=== PATIENT | male | born 1960 | race Caucasian/White ===

== ENCOUNTER 2019-11-10 12:48 | Outpatient (CLI) | payer OTHER, SELFPAY ==
--- NOTE | ~2019-11-10 | US_ITS ---
EXAMINATION: US FNA w image guidance, US FNA additional, US FNA additional DATE: 11/10/2019 14:34 INDICATION: Multiple thyroid nodules TECHNIQUE: A time-out was performed to verify the patient's name, date of , and procedure to be performed . The procedure and its benefits and risks were discussed with the patient. Risks specifically discus sed included bleeding and infection. The patient understood the risks and agreed to proceed. Attentio n was first turned to the left thyroid nodules. The anterior left side of the neck was prepped and dr aped in the usual sterile manner. 5 mL 1% lidocaine was used for local anesthesia overlying the left thyroid lobe. 5 passes were made with a 25G needle into the more cephalad nodule utilizing continuo us sonographic observation and placed in the first collection vial with media. The vial and medial we re exchanged an additional 5 passes were made with a 25G needle into the more caudal nodule again uti lizing continuous sonographic observation. The vial and medial were again exchanged and the anterior right side of the neck was prepped and draped in usual sterile manner. An additional 4 mm 1% lidocain e was used for local anesthesia overlying the right thyroid lobe. 5 passes were made with a 25G needl e into the dominant nodule at the inferior right thyroid lobe utilizing continuous ultrasound observa tion and specimen in the final vial. Sterile bandages were applied. There were no immediate complica tions. FINDINGS: Grayscale ultrasound images demonstrate biopsy needles advanced into first a 3.2 cm predominantly stanley id, heterogeneously isoechoic nodule in the more cephalad left thyroid lobe and subsequently a 2.7 cm solid heterogeneous isoechoic nodule at the mid to inferior left thyroid lobe. Final ultrasound imag es demonstrate biopsy needles advanced into a 3.2 cm nodule at the mid to inferior right thyroid lobe . IMPRESSION: 1. Successful ultrasound-guided fine needle aspiration of a predominantly solid 3.2 cm nodule at the cephalad left thyroid. 2. Successful ultrasound-guided fine-needle aspiration of a solid 2.7 cm nodule in the mid inferior l eft thyroid lobe. 3. Successful ultrasound-guided fine-needle aspiration of a solid 3.2 cm nodules in the mid to inferi or right thyroid lobe. Reviewed, dictated and finalized at location A. IMPRESSION: 1. Successful ultrasound-guided fine needle aspiration of a predominantly leola d 3.2 cm nodule at the cephalad left thyroid. 2. Successful ultrasound-guided fine-needle aspiration of a solid 2.7 cm nodule in the mid inferior left thyroid lobe. 3. Successful ultrasound-guided fine-needle aspiration of a solid 3.2 cm nodule s in the mid to inferior right thyroid lobe. IMPRESSION: 1. Successful ultrasound-guided fine needle aspiration of a predominantly leola d 3.2 cm nodule at the cephalad left thyroid. 2. Successful ultrasound-guided fine-needle aspiration of a solid 2.7 cm nodule in the mid inferior left thyroid lobe. 3. Successful ultrasound-guided fine-needle aspiration of a solid 3.2 cm nodule s in the mid to inferior right thyroid lobe.
== END 2019-11-10 12:49 | disposition home or self-care (01) ==
PROVIDERS: PCP Family Medicine; Visit Provider Nurse Practitioner Family
DX: E04.1 Nontoxic single thyroid nodule (principal)
CPT/HCPCS: 10005; 10006; 88173; 88305

== ENCOUNTER → 2020-12-04 02:30 | Outpatient (CLI) | payer OTHER, SELFPAY ==
[2020-12-04 17:39] LABS: SARS-CoV-2 RNA PCR Negative
== END ==
PROVIDERS: PCP Family Medicine; Visit Provider Nurse Practitioner Family
DX: R68.89 Other general symptoms and signs (principal); Z20.822 Contact with and (suspected) exposure to COVID-19
CPT/HCPCS: C9803; U0003; U0005

== ENCOUNTER 2021-11-02 14:01 | Emergency (ER) | payer OTHER, SELFPAY ==
[2021-11-02] VITALS (10 sets, daily range): BP systolic 140–162; BP diastolic 68–94; PULSE 76–78; RESP 18–20; TEMP 36.4; O2SAT 93–99
--- NOTE | ~2021-11-02 | CT_ITS ---
EXAMINATION: CTA brain carotid DATE: 11/02/2021 15:36 CDT INDICATION: Diplopia TECHNIQUE: Computed tomographic angiography (CTA) of the head was performed with 100 mL Omnipaque-350 intravenous contrast. CTA of the neck was performed with intravenous contrast. The dose-length produ ct was 1266.94 mGy-cm. Maximum intensity projection and volume rendered 3D-reconstructions were creat ed by the technologist on a separate workstation. Automated exposure control and iterative reconstruc tion technique were employed. COMPARISON: CT head dated 11/02/2021 FINDINGS: HEAD CTA: There is normal contrast opacification of the anterior, middle and posterior cerebral arter ies without evidence for aneurysm, occlusion or significant stenosis. There are dominant vertebral ar teries. NECK CTA: There is mediastinal and right hilar lymphadenopathy. For instance right paratracheal congl omeration of lymph nodes measures 6.2 x 4.2 cm. There is an enlarged diffusely heterogeneous thyroid gland containing multiple masses, largest in the left lobe measuring up to 2.9 cm. Recommend follow-u p dedicated thyroid ultrasound. There is atherosclerosis of the distal common and proximal internal c arotid arteries without evidence for occlusion, dissection. There is mild mucosal thickening of the s inuses. There is interlobular septal thickening in the lung parenchyma peripherally suggesting chroni c interstitial lung disease. There is 18% stenosis of the proximal right internal carotid artery relative to normal distal artery lumen diameter (NASCET criteria). There is 40% stenosis of the proximal left internal carotid artery relative to normal distal artery lumen diameter. IMPRESSION: 1. 18% stenosis of the proximal right internal carotid artery relative to normal distal artery lumen diameter (NASCET criteria). 2. 40% stenosis of the proximal left internal carotid artery relative to normal distal artery lumen d iameter. 3: No significant intracranial vascular abnormality. 4: Prominent mediastinal and right hilar lymphadenopathy, suspicious for metastatic disease or lympho ma. Correlate for history of malignancy. 5: Enlarged thyroid gland containing multiple masses measuring up to 2.9 cm. Recommend correlation [facility] dedicated thyroid ultrasound on a nonemergent basis. Reviewed, dictated and finalized at location A. IMPRESSION: 1. 18% stenosis of the proximal right internal carotid artery relative to niels l distal artery lumen diameter (NASCET criteria). 2. 40% stenosis of the proximal left internal carotid artery relative to normal distal artery lumen diameter. 3: No significant intracranial vascular abnormality. 4: Prominent mediastinal and right hilar lymphadenopathy, suspicious for metast atic disease or lymphoma. Correlate for history of malignancy. 5: Enlarged thyroid gland containing multiple masses measuring up to 2.9 cm. Re commend correlation with dedicated thyroid ultrasound on a nonemergent basis.
--- NOTE | ~2021-11-02 | XR_ITS ---
XR chest 1V portable 11/02/2021 14:53 Indication: Double vision and headaches Procedure: AP portable chest Comparison: No prior studies for comparison. Findings: There is prominent right peritracheal soft tissue. Heart size normal. No focal air space di sease, pulmonary edema, pleural effusion or suspected pneumothorax. Impression: 1: Prominent right paratracheal soft tissue. Consider vascular ectasia/aneurysm versus lymphadenopath y. Reviewed, dictated and finalized at location A. Impression: 1: Prominent right paratracheal soft tissue. Consider vascular ectasia/aneurysm versus lymphadenopathy.
--- NOTE | ~2021-11-02 | CT_ITS ---
EXAMINATION: CT BRAIN W/O DATE: 11/02/2021 14:19 INDICATION: Double vision with headaches. TECHNIQUE: Computed tomography (CT) of the head was performed without intravenous contrast. The dose- length product was 605.33 mGy-cm. Automated exposure control and iterative reconstruction technique w ere employed. COMPARISON: MRI dated 12/23/2006 FINDINGS: Normal brain parenchymal volume for age. Normal love-white differentiation. No acute intrac ranial hemorrhage, infarction, mass or mass effect. The pituitary gland appears prominent and hyperdense, suspicious for pituitary mass. No ventriculomegaly or midline shift. Midline sagittal images demonstrate a normal corpus callosum, c raniovertebral junction and sella turcica. Basilar cisterns are patent. There are scattered mild ja ventricular and subcortical white matter changes, most likely related to small vessel ischemic diseas e (microangiopathy). Paranasal sinuses and mastoids are pneumatized. No depressed skull fractures. IMPRESSION: 1. No acute intracranial abnormality. 2: Possible pituitary mass. Recommend correlation with MRI of the brain with contrast using pituitar y protocol. Reviewed, dictated and finalized at location A. IMPRESSION: 1. No acute intracranial abnormality. 2: Possible pituitary mass. Recommend correlation with MRI of the brain with c ontrast using pituitary protocol.
--- NOTE | 2021-11-02 14:06 | ECG_ITS ---
Measurements Intervals [place] Rate: 73 P: 31 SC: 166 QRS: -50 QRSD: 122 T: 20 QT: 381 QTc: 420 Interpretive Statements SINUS RHYTHM LEFT ANTERIOR FASCICULAR BLOCK ABNORMAL ECG Electronically Signed On 11-02-2021 15:35:36 CDT by Osvaldo Valverde D.O.
--- NOTE | 2021-11-02 14:18 | ED.HA ---
HPI - Headache General Chief Complaint: Headache <Homar Ward MD - Last Filed: 11/02/21 22:02> Stated Complaint: headaches with double vision <Homar Ward MD - Last Filed: 11/02/21 22:02> Time Seen by Provider: 11/02/21 14:18 <Homar Ward MD - Last Filed: 11/02/21 22:02> Source: patient and family <Homar Ward MD - Last Filed: 11/02/21 22:02> Mode of arrival: ambulatory <Homar Ward MD - Last Filed: 11/02/21 22:02> Limitations: no limitations <Homar Ward MD - Last Filed: 11/02/21 22:02> History of Present Illness HPI Narrative: Patient is 61 years old white male came to the emergency room from home with his by private car complaining of headache, double vision. Patient reports some headache, sharp, steady, at the occipital area radiating to the right parietal area and behind the right eye started 2 weeks ago. 3 out of 10, patient reports the headache get worse if he bends over, nothing make it better. 6 days ago patient developed double vision and needs to close his eye every now and to refocus. Patient been driving his car every day. Sometimes close 1 eye to see better. Patient denies any fever, chills, nausea, vomiting, similar symptoms, chest pain, shortness of breath, back pain, trauma. Patient quit smoking 6 years ago, does not drink or uses drugs, history of hypertension, does not take anticoagulant or antiplatelet medication. Patient denies numbness, tingling or weakness anywhere in his body. Patient denies any gait abnormality. <Homar Ward MD - Last Filed: 11/02/21 22:02> Related Data Allergies/Adverse Reactions: Allergies Allergy/AdvReac Type Severity Reaction Status Date / Time No Known Allergies Allergy Unknown Verified 08/06/21 16:08 <Homar Ward MD - Last Filed: 11/02/21 22:02> Review of Systems Review of Systems: All systems reviewed & are unremarkable except as noted in HPI and below <Homar Ward MD - Last Filed: 11/02/21 22:02> [facility] Past Medical History Medical History: Medical History Anxiety disorder, unspecified BMI 34.0-34.9,adult BMI 36.0-36.9,adult Decreased libido Elevated hemoglobin Essential (primary) hypertension Gout, unspecified Low testosterone Neck Pain Thyroid nodule <Homar Ward MD - Last Filed: 11/02/21 22:02> Surgical History Surgical History: Surgical History S/P left rotator cuff repair <Homar Ward MD - Last Filed: 11/02/21 22:02> Family History Family History: Family History Mother Hypertension Family history of diabetes mellitus in first degree relative Other Diabetes mellitus Family history of arthritis Family history of gout Family history of heart disease in male family member before age 55 <Homar Ward MD - Last Filed: 11/02/21 22:02> Social History Social History: Social History Smoking status: Never smoker Alcohol intake: current <Homar Ward MD - Last Filed: 11/02/21 22:02> Exam Narrative: General appearance: Well-developed, well-nourished, patient wearing glasses for long time for driving Skin: Normal color Head: Normocephalic, nontraumatic Eyes: Clear conjunctiva. Right pupil is 4 mm reactive to light, left pupil is 3 mm reactive to light. ENT: Oropharynx normal, ears normal, nose normal Neck: Supple, nontender Chest and respiratory: Airway patent, no respiratory distress, no accessory muscle use Heart: Regular rate/rhythm Abdomen: Soft, nontender, no organomegaly, quiet bowel sounds Vascular: Normal peripheral pulses, normal capillary refill. Musculoskeletal: Normal range of motion, nontender back Neurologic: Alert and oriented ?3, [employer] is normal as tested, no gross motor deficit
[2021-11-02 14:50] LABS: Basophils Percent Auto 0.7 % (0.2-1.2); Eosinophils Absolute Auto 0.2 K/mm3 (0-0.3); Eosinophils Percent Auto 2.9 % (0-4.4); Hematocrit 47.1 % (42.0-52.0); Immature Granulocyte Absolute 0.03 K/mm3 (0.00-0.031); Immature Granulocyte Percent A 0.5 % (0-0.5); Lymphocytes Absolute Auto 1.75 K/mm3 (0.9-3.2); Lymphocytes Percent Auto 31.3 % (18.3-44.2); Mean Corpuscular Hemoglobin 27.6 pg (26-34); Mean Corpuscular Volume 81.3 fl (80-100); Mean Platelet Volume 9.1 fl (7.4-10.4); Monocytes Absolute Auto 0.5 K/mm3 (0.1-0.6); Monocytes Percent Auto 8.2 % (2.6-8.5); Neutrophils Absolute Auto 3.2 K/mm3 (1.3-6.7); Neutrophils Percent Auto 56.4 % (45.5-73.1); Platelet Count Result 185 k/mm3 (150-375); Red Blood Count 5.79 M/mm3 (4.6-6.20); Red Cell Distribution Width 13.2 % (11.5-14.5); White Blood Count 5.6 K/mm3 (4.5-10.0)
[2021-11-02 14:57] LABS: CRP 0.7 mg/dL (<1.0)
[2021-11-02 14:59] LABS: Partial Thromboplastin Time 25.2 SECONDS (22.3-36.8)
[2021-11-02 15:07] LABS: Alanine Aminotransferase 26 U/L (6-50); Albumin Level 4.4 g/dL (3.5-5.1); Alkaline Phosphatase 56 U/L (38-126); Anion Gap 10 mmol/L (8-16); Aspartate Amino Transferase 25 U/L (17-59); Bilirubin,Total 0.4 mg/dL (0.2-1.3); Blood Urea Nitrogen 27 mg/dL (9-20); Calcium 9.5 mg/dL (8.4-10.2); Carbon Dioxide 23 mmol/L (22-30); Chloride 106 mmol/L (98-107); Estimated CRCL calculation 90 ml/min; Estimated Glomerular Filt Rate > 60; Glucose 155 mg/dL (65-110); Potassium 3.8 mmol/L (3.4-5.0); Sodium 139 mmol/L (137-145)
[2021-11-02 15:18] LABS: Troponin I < 0.012 ng/mL (0.000-0.034)
[2021-11-02 15:38] LABS: Erythrocyte Sedimentation Rate 3 mm/hr (0-20)
--- NOTE | 2021-11-02 20:55 | PC.NURSE ---
No bed for pt at [facility] as they are at capacity. No bed until tomorrow am at earliest.
--- NOTE | 2021-11-02 23:09 | PC.NURSE ---
Assuming care of pt.
[2021-11-03] VITALS (17 sets, daily range): BP systolic 112–169; BP diastolic 67–100; PULSE 63–71; RESP 16–18; O2SAT 93–99
--- NOTE | 2021-11-03 03:29 | PC.NURSE ---
Rn spoke with slu access line there is no bed available at this time. Potential wait time for bed several days .
[2021-11-03 07:18] LABS: SARS-CoV-2 RNA PCR Negative
--- NOTE | 2021-11-03 07:19 | PC.NURSE ---
Patient report received from JENNY Edwards. All questions answered and care of patient assumed.
[2021-11-03] MEDS: LOSARTAN POTASSIUM 100 MG TABLET PO (08:28)
[2021-11-03] MEDS: hydroCHLOROthiazide 12.5 MG CAPSULE PO (08:28)
[2021-11-03] MEDS: LORazepam INJ (*CRX) 2 MG/ML VIAL 1 MG IV PUSH (09:12)
[2021-11-06 14:13] LABS: Adrenocorticotropic Hormone 24 pg/mL (6-50)
[2021-11-06 20:55] LABS: FSH 3.3 mIU/mL (1.6-8.0); Prolactin 13.4 ng/mL (***)
[2021-11-10 15:51] LABS: Z Score Male -0.6 SD (-2.0 - +2.0)
== END 2021-11-03 09:26 | disposition short-term general hospital (02) ==
PROVIDERS: Emergency Medicine; Emergency Provider Emergency Medicine; PCP Family Medicine
DX: R51.9 Headache, unspecified (principal); H53.2 Diplopia; R59.1 Generalized enlarged lymph nodes; E07.89 Other specified disorders of thyroid; E23.6 Other disorders of pituitary gland; Z20.822 Contact with and (suspected) exposure to COVID-19; I10 Essential (primary) hypertension; M10.9 Gout, unspecified; Z87.891 Personal history of nicotine dependence; I44.4 Left anterior fascicular block; I65.23 Occlusion and stenosis of bilateral carotid arteries
CPT/HCPCS: 36415; 70450; 70496; 70498; 71045; 80053; 82024; 82533; 83001; 84146; 84305; 84443; 84484; 85025; 85610; 85652; 85730; 86140; 93005; 96361; 96374; 99285; A9270; C9803; J0131; J2060; Q9967; U0003; U0005

== ENCOUNTER 2023-03-02 00:28 | Day surgery (SDC) | payer OTHER, SELFPAY ==
[2023-02-17 13:48] VITALS: BMI 33.3
--- NOTE | 2023-02-27 09:48 | SUR.PREOP ---
Patient called regarding upcoming procedure. Reviewed preop instructions, appointment times, and procedure prep.
[2023-03-02 06:52] VITALS: BP 134/82; PULSE 71; RESP 18; TEMP 36.2; O2SAT 98
[2023-03-02] MEDS: LACTATED RINGERS 1,000 ML 150 ML IV CONT (07:07)
--- NOTE | 2023-03-02 07:28 | PM.HPGS ---
History of Present Illness History of Present Illness Consent: Risks, benefits, and alternatives have been discussed and questions answered. Patient agrees to proceed with procedure. Chief complaint: neoplasm screening Narrative: Edy Hollingsworth is a 62 year old male Presents for screening colonoscopy. Patient's current weight appetite and bowel movements are normal. Patient denies abdominal pain. He has had no bleeding. Family history noncontributory. Previous colonoscopy 10 years ago was unremarkable. Patient's past medical history is significant for gastric bypass surgery. Review of Systems Review of Systems: Review of systems noncontributory. [facility] Past Medical History Medical History (Updated 01/12/23 @ 18:08 by AZAEL Nolasco) Anxiety disorder, unspecified BMI 34.0-34.9,adult BMI 35.0-35.9,adult BMI 36.0-36.9,adult Decreased libido Diffuse large B-cell lymphoma Elevated hemoglobin Essential (primary) hypertension Gout, unspecified Low testosterone Neck Pain Thyroid nodule Surgical History Surgical History S/P left rotator cuff repair Family History Family History (Updated 01/02/23 @ 08:27 by SHAHEED Langford) Mother Hypertension Family history of diabetes mellitus in first degree relative Father Anemia Sibling Acute myocardial infarction Sibling No problems noted. Other Diabetes mellitus Family history of arthritis Family history of gout Family history of heart disease in male family member before age 55 Social History Social History (Updated 01/02/23 @ 07:55 by SHAHEED Langford) Smoking packs per day: 1 Smoking cigarettes per day: 20.0 Years smoked: 30 Smoking pack-years: 30.00 Smoking status: Former smoker Tobacco type: cigarettes Second hand tobacco smoke exposure: No Alcohol intake: current Substance use: never Substance use type: does not use Lack of Transportation: No Lack of Food: Never True Current Housing: I Have Housing Concerned About Future Housing: No Difficulty Paying Gas/Electric Bills: No Difficulty Paying for Meds: No Currently Unemployed: No Difficulty w/ Childcare or Family Care: No Living arrangements: with family Gender identity (if verbalized by the patient): Male Meds Home Medications and Allergies Home Medications Medication Instructions Recorded Confirmed Type acetaminophen 500 mg capsule 500 mg PO Q6H PRN Pain 01/02/23 03/02/23 History acyclovir 400 mg tablet 400 mg PO BID 01/02/23 03/02/23 History lorazepam 0.5 mg tablet (Ativan) 0.5 mg PO DAILY PRN Anxiety 01/02/23 03/02/23 History Allergies Allergy/AdvReac Type Severity Reaction Status Date / Time No Known Allergies Allergy Unknown Verified 03/02/23 06:49 Vital Signs Vital Signs - 24 hr 03/02/23 06:52 Temperature 97.2 F L Pulse Rate 71 Respiratory Rate 18 Blood Pressure 134/82 Pulse Oximetry 98 Oxygen Delivery Room Air Exam Narrative: Physical exam reveals patient to be alert. Vital signs stable. HEENT exam is unremarkable. Patient is anicteric. Lungs are clear to auscultation and percussion. Heart is without murmur or extra sounds. Abdomen is obese. Bowel sounds are present soft nontender with no organomegaly. Digital external rectal exam is normal. Assessment and Plan Assessment and plan (1) Screening for colon cancer: Code(s): Z12.11 - Encounter for screening for malignant neoplasm of colon Status: Acute Assessment and Plan: Patient presents today for screening colonoscopy. He appears to be at average risk for colon polyps. Further recommendations may be given after endoscopy.
--- NOTE | 2023-03-02 07:34 | WPDANESEPPF ---
Anes - Initial Pre Proc Eval Procedure: Operation Date: 03/02/23 08:00 Proposed Procedures p Screening Colonoscopy - Shun Douglass MD Date/Time: 03/02/23 07:34 Surgeon: Shun Douglass MD Pre Op Diagnosis: neoplasm screening Patient Data Age: 62 Gender: M Height: 1.83 m Weight: 112.3 kg Last Vital Signs Temp 97.2 F L 03/02/23 06:52 Pulse 71 03/02/23 06:52 Resp 18 03/02/23 06:52 BP 134/82 03/02/23 06:52 Pulse Ox 98 03/02/23 06:52 O2 Del Method Room Air 03/02/23 06:52 Allergies Allergy/AdvReac Type Severity Reaction Status Date / Time No Known Allergies Allergy Unknown Verified 03/02/23 06:49 Home Medications Medication Instructions Recorded Confirmed Type acetaminophen 500 mg capsule 500 mg PO Q6H PRN Pain 01/02/23 03/02/23 History acyclovir 400 mg tablet 400 mg PO BID 01/02/23 03/02/23 History lorazepam 0.5 mg tablet (Ativan) 0.5 mg PO DAILY PRN Anxiety 01/02/23 03/02/23 History Patient hx anesthesia problems: none Family hx anesthesia problems: none Results Review: All pre-operative results and documents have been reviewed as part of the pre-operative evaluation. [facility] Past Medical History Medical History (Updated 01/12/23 @ 18:08 by Mavis Manzo [facility]) Anxiety disorder, unspecified BMI 34.0-34.9,adult BMI 35.0-35.9,adult BMI 36.0-36.9,adult Decreased libido Diffuse large B-cell lymphoma Elevated hemoglobin Essential (primary) hypertension Gout, unspecified Low testosterone Neck Pain Thyroid nodule Surgical History Surgical History S/P left rotator cuff repair Family History Family History (Updated 01/02/23 @ 08:27 by SHAHEED Langford) Mother Hypertension Family history of diabetes mellitus in first degree relative Father Anemia Sibling Acute myocardial infarction Sibling No problems noted. Other Diabetes mellitus Family history of arthritis Family history of gout Family history of heart disease in male family member before age 55 Social History Social History (Updated 01/02/23 @ 07:55 by Elizabet Mendoza [facility]) Smoking packs per day: 1 Smoking cigarettes per day: 20.0 Years smoked: 30 Smoking pack-years: 30.00 Smoking status: Former smoker Tobacco type: cigarettes Second hand tobacco smoke exposure: No Alcohol intake: current Substance use: never Substance use type: does not use Lack of Transportation: No Lack of Food: Never True Current Housing: I Have Housing Concerned About Future Housing: No Difficulty Paying Gas/Electric Bills: No Difficulty Paying for Meds: No Currently Unemployed: No Difficulty w/ Childcare or Family Care: No Living arrangements: with family Gender identity (if verbalized by the patient): Male Anes - Eval Final PreProcedure Day of Procedure 03/02/23 07:34 Patient weight: obese Heart: regular rate and rhythm Lungs: clear to auscultation Airway: Mallampati scale class II Neurological: alert and oriented Last oral intake: >/= 8 hours Emergent: no Anesthetic plan: proceed Anesthesia type and monitoring: general GIVS and standard monitoring Results Review: All pre-operative results and documents have been reviewed as part of the pre-operative evaluation. Informed Consent: The patient's anesthetic plan and its attendant risks and benefits were discussed with the patient/family/POA. Questions were solicited and answers provided to the satisfaction of the patient/family/POA.
[2023-03-02 08:19] VITALS: BP 107/63; PULSE 64; RESP 18; O2SAT 92
[2023-03-02 08:29] VITALS: BP 123/72; PULSE 65; RESP 21; O2SAT 95
[2023-03-02 08:39] VITALS: BP 139/88; PULSE 58; RESP 14; O2SAT 97
== END 2023-03-02 08:45 | disposition home or self-care (01) ==
PROVIDERS: PCP Family Medicine; Visit Provider Internal Medicine Gastroenterology
PROC: 0DJD8ZZ Inspection of Lower Intestinal Tract, Via Natural or Artificial Opening Endoscopic (ICD-10-PCS; CPT 45378; principal; 2023-03-02 08:00)
DX: Z12.11 Encounter for screening for malignant neoplasm of colon (principal); D12.3 Benign neoplasm of transverse colon; D12.2 Benign neoplasm of ascending colon; F41.9 Anxiety disorder, unspecified; I10 Essential (primary) hypertension; K64.8 Other hemorrhoids; Z87.891 Personal history of nicotine dependence; E66.9 Obesity, unspecified; Z68.33 Body mass index [BMI] 33.0-33.9, adult; Z82.49 Family history of ischemic heart disease and other diseases of the circulatory system; Z85.72 Personal history of non-Hodgkin lymphomas
CPT/HCPCS: 45385; 88305; J2704; J7120

== ENCOUNTER 2023-04-14 09:02 | Outpatient (CLI) | payer OTHER, SELFPAY ==
--- NOTE | ~2023-04-14 | CT_ITS ---
Clinical Indication: Pulmonary embolus, chest pain CT Scan of the Chest with Contrast: Technique: Contiguous sections were acquired throughout the chest after intravenous administration of 100 cc of Omnipaque 350. Dose reduction technique was used on this scan by utilizing automated expos ure control and iterative reconstruction technique. The dose-length product (DLP) was 882.29 mGy-cm. Findings: There is no evidence of any significant mediastinal, hilar or axillary lymphadenopathy. There is no f illing defect in the pulmonary arterial tree to suggest pulmonary embolus. There is no evidence of ao rtic dissection or aneurysm. There is no evidence of pleural or pericardial effusion. The lungs are clear. No pulmonary nodules or infiltrates are noted. Images through the upper abdomen reveal small gallstones. Impression: No evidence of pulmonary embolus, aortic dissection, or aortic aneurysm. Clear lungs. Cholelithiasis. Reviewed, dictated and finalized at [facility]. R CUTTER Impression: No evidence of pulmonary embolus, aortic dissection, or aortic aneurysm. Clear lungs. Cholelithiasis.
[2023-04-14 09:21] LABS: Estimated Glomerular Filt Rate > 60
== END 2023-04-14 09:03 | disposition home or self-care (01) ==
LOC: ANHIMG 09:07
PROVIDERS: PCP Family Medicine
DX: I26.99 Other pulmonary embolism without acute cor pulmonale (principal); K80.20 Calculus of gallbladder without cholecystitis without obstruction
CPT/HCPCS: 71275; Q9967

== ENCOUNTER 2023-10-19 13:26 | Emergency (ER) | payer OTHER, SELFPAY ==
[2023-10-19] VITALS (8 sets, daily range): BP systolic 145–176; BP diastolic 81–96; PULSE 18–75; RESP 20; TEMP 36.3; O2SAT 95–99
--- NOTE | ~2023-10-19 | XR_ITS ---
EXAMINATION: XR finger 1st RT min 2V DATE: 10/19/2023 13:47 INDICATION: Right thumb injury. TECHNIQUE: 3 views of right thumb were obtained. COMPARISON: None. FINDINGS: Bone alignment is normal. No fracture. There is mild osteoarthritis of first interphalangea l joint, first metacarpophalangeal joint, and first carpometacarpal joint. There is a laceration of t he thumb soft tissues. IMPRESSION: 1. No fracture or radiopaque foreign body. Reviewed, dictated and finalized at location A.
--- NOTE | 2023-10-19 13:31 | ED.WOUNDLAC ---
HPI - Wound/Laceration General Chief Complaint: Wound/Laceration <BREA Acevedo Last Filed: 10/19/23 13:34> Stated Complaint: right thumb lac <BREA Acevedo Last Filed: 10/19/23 13:34> Time Seen by Provider: 10/19/23 13:30 <BREA Acevedo Last Filed: 10/19/23 13:34> Focused HPI: Patient is a 63-year-old male who presents the ED with report of a laceration to his right 1st digit. Patient reports he was using a log splitter with a log slipped and he attempted to catch it. He sustained a laceration to his right 1st digit. Bone is clearly exposed. Tetanus unknown. Patient denies any other injuries. He does report decreased sensation to finger. GENERAL: Well-appearing, well-nourished, and in no acute distress. HEAD: Normocephalic, atraumatic. CHEST: Clear to auscultation. ?No respiratory distress. HEART: Regular rate and rhythm.? MSK: Large jagged longitudinal skin avulsion/laceration to entirety of R 1st digit finger pad, extending down towards proximal finger. Bone and vascularity clearly visible. Decreased sensation to distal finger tip. Nail and nail bed is intact and attached. No significant active bleeding. Radial pulses intact. Small abrasions to R forearm, no active bleeding. NEURO: ?Alert and oriented x3. Patient screened in triage and initial orders placed.? ?Additional care and disposition to be based upon?diagnostic testing and treatment. <BREA Acevedo Last Filed: 10/19/23 13:34> Source: patient <BREA Acevedo Last Filed: 10/19/23 13:34> Mode of arrival: ambulatory <BREA Acevedo Last Filed: 10/19/23 13:34> Limitations: no limitations <BREA Acevedo Last Filed: 10/19/23 13:34> History of Present Illness HPI narrative: 63-year-old male presenting emergency department for evaluation for a laceration to his thumb from a wood splitter accident. <Edgardo Aguirre MD - Last Filed: 10/20/23 17:00> Related Data Home Medications: Home Medications Medication Instructions Recorded Confirmed acetaminophen 500 mg capsule 500 mg PO Q6H PRN Pain 01/02/23 09/10/23 lorazepam 0.5 mg tablet (Ativan) 0.5 mg PO DAILY PRN Anxiety 01/02/23 09/10/23 aspirin 81 mg capsule 81 mg PO DAILY 09/10/23 09/10/23 atorvastatin 20 mg tablet mg PO DAILY 09/10/23 09/10/23 escitalopram oxalate 20 mg tablet mg PO DAILY 09/10/23 09/10/23 lisinopril 5 mg tablet mg PO DAILY 09/10/23 09/10/23 metoprolol tartrate 25 mg tablet mg PO DAILY 09/10/23 09/10/23 <Debbie Hawley PA-C - Last Filed: 10/19/23 13:34> Allergies/Adverse Reactions: Allergies Allergy/AdvReac Type Severity Reaction Status Date / Time No Known Allergies Allergy Unknown Verified 10/19/23 13:34 <Debbie Hawley PA-C - Last Filed: 10/19/23 13:34> Review of Systems Review of Systems: All systems reviewed & are unremarkable except as noted in HPI and below <Edgardo Aguirre MD - Last Filed: 10/20/23 17:00> [facility] Past Medical History Medical History: Medical History (Updated 10/20/23 @ 00:00 by Orion Aguilar) Anxiety disorder, unspecified BMI 34.0-34.9,adult BMI 36.0-36.9,adult Decreased libido Diffuse large B-cell lymphoma Elevated hemoglobin Essential (primary) hypertension Gout, unspecified Lipoma of right forearm Low testosterone Neck Pain Polyarthralgia Thyroid nodule <BREA Acevedo Last Filed: 10/19/23 13:34> Surgical History Surgical History: Surgical History S/P left rotator cuff repair <Debbie Hawley PA-C - Last Filed: 10/19/23 13:34> Family History Family History: Family History Mother Hypertension Family history of diabetes mellitus in first degree relative Father Anemia Sibling Acute myocardial
[2023-10-19] MEDS: TETANUS,DIPHTHERIA,AC PERTUSSIS ADULT (0.5 ML) BOOSTRIX IM (14:53)
[2023-10-19] MEDS: HYDROmorphone HCL INJ (*CRX) 1 MG/ML SYR 0.5 MG IV PUSH (16:23)
[2023-10-19] MEDS: ceFAZolin 1 GM/NS 50 ML 1 GM/50 ML BAG IVPB (16:25)
== END 2023-10-19 17:44 | disposition home or self-care (01) ==
PROVIDERS: Emergency Provider Emergency Medicine; PCP Family Medicine
DX: S61.011A Laceration without foreign body of right thumb without damage to nail, initial encounter (principal); Z23 Encounter for immunization; W27.8XXA Contact with other nonpowered hand tool, initial encounter
CPT/HCPCS: 29125; 73140; 90471; 90715; 96365; 96375; 99284; J0690; J1170